=== PATIENT | female | born 1985 | race Hispanic/Latino ===

== ENCOUNTER 2018-08-09 14:47 | Inpatient (IN) | payer OTHER ==
[~2018-08-09] VITALS: Ht 162.6 cm; Wt 105.0 kg
--- NOTE | ~2018-08-09 | OR ---
[facility] [address], [place] [address] Draft DATE OF OPERATION: 08/09/2018 SURGEON: Margot Chen MD INSTALLATION DRAFTER: Timo Gunn DO PREOPERATIVE DIAGNOSES: A 36 plus week , severe preeclampsia, previous section x3, undesired fertility. POSTOPERATIVE DIAGNOSES: A 36 plus week , severe preeclampsia, previous section x3, undesired fertility with severe pelvic and abdominal adhesions. PROCEDURES PERFORMED: section with low segment transverse uterine incision, right salpingectomy, left partial salpingectomy, lysis of adhesions. ANESTHESIA: Spinal. ESTIMATED BLOOD LOSS: 1500 mL. DRAINS: Sanchez catheter. INDICATIONS AND FINDINGS: The patient is a 32-year-old female, 5, para 3, SAB 1, who was admitted at 36 weeks and 2 days with severe preeclampsia, headache, this been ongoing for the last five days. The patient has a history of chronic hypertension and has been on baby aspirin during the . She has a history of her prior affected with preeclampsia. 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 She has had proteinuria, which is worsened through the as well. She was counseled and taken to surgery, where she was delivered of a little girl from the ROT position via lower segment transverse uterine incision with Apgars of 8, 9, and 9, and weight of 6 pounds 1 ounce. There were extensive adhesions in the subfascial areas requiring a Maylard incision. There were also adhesions of the pyramidalis to the anterior uterine wall. There were also adhesions of the omentum to the anterior peritoneum. The tubes and ovaries PATIENT NAME: JEM MASON OPERATIVE REPORT DATE OF : 81 REPORT #: [id number] PHYSICIAN: MARGOT CHEN MD PCP: MARGOT CHEN MD REPORT IS CONFIDENTIAL AND NOT TO BE RELEASED WITHOUT AUTHORIZATION [facility] [address], [place] [address] Draft otherwise appeared normal as did the placenta. DESCRIPTION OF PROCEDURE: The patient was prepped and draped in the supine position. The prior scar was excised sharply. An incision was then carried down through the fascia with a cutting cautery. However, there were multiple large vessels in the subcu space requiring additional cautery to control bleeding. When the fascia was identified, the incision was extended initially with the knife and then with Gregory scissors. The inferior fascial flap was created with little difficulty. The upper flap was created with significant difficulty. At this point, there was still not enough room to operate. Subsequent to this, the muscles were on each side creating a Maylard type incision. The peritoneum had been previously opened. There was a dense adhesion of the pyramidalis muscle to the anterior uterine wall. This was divided with Gregory scissors and free tied on each side. Following this, the uterine incision was made at the upper aspect of the peritoneal reflection. The baby was delivered with the above findings and handed off to the pediatric staff in attendance. The uterus was explored and remaining placental tissue was removed from the uterus. The edges of the uterine incision were identified. Following this, an attempt was made to deliver the uterus as an Gordy retractor could not be placed previously because of the adhesions. The omental adhesions were identified and these were clamped and divided and free tied with 2-0 chromic as well. There was a very raw area on the anterior uterine wall from where the dissection was done from the previous adhesion. Several fenric-vp-twzyq 2-0 chromic were needed to control bleeding in this area as well. Following this, the uterus was closed with a running locking stitch of 0 Monocryl. Pressure was placed on this area and the patient's right tube was identified and hemostats were used to divide the mesosalpinx and this was serially clamped and divided and the specimen excised. Free ties of 0 Vicryl were used on the mesosalpinx. Good hemostasis was noted on the right side. The left tube was then identified and a partial salpingectomy was done as there was a very large vessel as the tube approached the uterus. The mesosalpinx was divided with hemostats and Metzenbaum scissors and the specimen excised. Free ties of 0 Vicryl were used on the mesosalpinx. Good hemostasis was noted. At this point, attention was redirected to the uterus. Multiple additional ttcsye-xb-fexlvx of 0 Monocryl were required to control bleeding at the incision site. Additional jtgmjm-bk-zdsknz were required on the uterine wall anteriorly where the previous adhesions had been taken down as well. The abdomen was copiously irrigated and inspected, and after long periods of observation and pressure it was felt that this layer was finally hemostatic enough to move onto the next layer. Jannette was sprinkled over the uterine incision as well as over the anterior wall over the raw area to aid in hemostasis. The peritoneum was left open. The muscles could not be brought together as they were very widely at this point. Crixxs-wh-orrizd were required on the upper left aspect of the muscles for control of bleeding from the membership counselor. Bleeding points were controlled at the inferior aspect with cgrqot-zm-fblvd sutures of 2-0 Vicryl as well. This layer was then PATIENT NAME: JEM MASON OPERATIVE REPORT DATE OF : 81 REPORT #: [id number] PHYSICIAN: MARGOT CHEN MD PCP: MARGOT CHEN MD REPORT IS CONFIDENTIAL AND NOT TO BE RELEASED WITHOUT AUTHORIZATION [address] [place], [place] [address] Draft irrigated and felt to be hemostatic. The fascia was then closed from each angle to the midline with a running suture of 0 Vicryl. There was significant tension on the midportion of the incision. The subcu layer was very tethered especially inferiorly and this required some release in the subcu area, which of course led to further bleeding given the extreme vascularity of the subcu layer. These bleeding points were controlled again with cautery. This layer was irrigated and a layer of Jannette was placed over this in this area to aid in hemostasis as well. The subcu space was closed with interrupted sutures of 3-0 Vicryl. The skin was closed with bailey. All sponge and needle counts were correct. She tolerated the procedure very well and was stable throughout. She was then taken to the recovery room in good condition. MD RYANNE Allen/MODL /[id number] cc: Timo Gunn DO Copies: TIMO GUNN DO ~ PATIENT NAME: JEM MASON OPERATIVE REPORT DATE OF : 81 REPORT #: [id number] PHYSICIAN: MARGOT CHEN MD PCP: MARGOT CHEN MD REPORT IS CONFIDENTIAL AND NOT TO BE RELEASED WITHOUT AUTHORIZATION
--- NOTE | 2018-08-09 21:07 | NUR ---
08/09/182106 Mya Willis PT ARRIVES TO C ROOM, SPOUSE IS AT THE BEDSIDE. SHE IS AWAKE, HER SPINAL HAS FULLY RESOLVED BEFORE RETURNING TO HER ROOM. SHE IS DENYING ANY PAIN AT THIS TIME.
--- NOTE | 2018-08-10 08:44 | PR ---
[facility] [address] [facility] [place], [place] [address] Signed PP Progress Notes Datetime Report Generated by CPN: 08/10/2018 08:44 SUBJECTIVE: [id number] Pain: Within normal limits Nausea/Vomiting: Denies Vital Signs: [id number] Vital Signs: Reviewed; Within Normal Limits EXAM: [id number] Cardiovascular: Normal Respiratory: Normal Abdomen/Uterus: Abnormal Lochia: Normal Vulva/Perineum: Not Done Breasts: Not Done CVA Tenderness: Not Done Extremities: Normal Incision: Abnormal Progress: Abnormal Exam Comments: Abdomen with active BS. Fundus firm, NT @ U+1. Incision with some bailey out in the midportion with some oozing from the incision. H/H 10.7/31.1, WBC 8.9, plat 166k IMPRESSION/PLAN/PROCEDURES: [id number] Impression: Normal progression; Induced Hypertension Other Impression: BPs improved Other Plans: ambulate later, redress incision Progress Notes: Overall doing well. Later today will begin ambulation. Will need to redress incision given the oozing in the center and loss of bailey in that area. Signing Physician: Margot Chen MD Copies: ~ *Electronically Signed* 08/10/18 0844 MARGOT CHNE MD PATIENT NAME: JEM MASON PROGRESS NOTE DATE OF : 81 PHYSICIAN: MARGOT CHEN MD RPT #: [id number] REPORT IS CONFIDENTIAL AND NOT TO BE RELEASED WITHOUT AUTHORIZATION
--- NOTE | 2018-08-11 10:11 | PR ---
[facility] [address] [place], [place] [address] Signed PP Progress Notes Datetime Report Generated by CPN: 08/11/2018 10:11 SUBJECTIVE: [id number] Pain: Within normal limits Nausea/Vomiting: Denies Flatus: Yes Vital Signs: [id number] Vital Signs: Reviewed; Within Normal Limits EXAM: [id number] Cardiovascular: Normal Respiratory: Normal Abdomen/Uterus: Abnormal Lochia: Normal Vulva/Perineum: Not Done Breasts: Not Done CVA Tenderness: Not Done Extremities: Normal Incision: Abnormal Progress: Abnormal Exam Comments: Abdomen with active BS. Fundus firm, NT @ U. Incision with open area as bailey came out with small amount of bloody drainage. There is no erythema, induration, or purulent D/. IMPRESSION/PLAN/PROCEDURES: [id number] Impression: Normal progression Other Impression: BPs improved Plan: Discharge Other Plans: ambulate later, redress incision Procedures: None Progress Notes: Doing well though there is an open area in the midportion where bailey came out. They do desire D/C to see baby at [facility]. Signing Physician: Margot Chen MD Copies: ~ *Electronically Signed* 08/11/18 1011 MARGOT CHEN MD PATIENT NAME: JEM MASON PROGRESS NOTE DATE OF : 81 PHYSICIAN: MARGOT CHEN MD RPT #: [id number] REPORT IS CONFIDENTIAL AND NOT TO BE RELEASED WITHOUT AUTHORIZATION
== END 2018-08-11 12:05 | disposition home or self-care (01) | DRG 783 ==
LOC: FBCO 14:47 → FBC 17:11
PROVIDERS: ADMIT Obstetrics & Gynecology
PROC: 0UB60ZZ Excision of Left Fallopian Tube, Open Approach (ICD-10-PCS; 2018-08-09)
PROC: 0UT50ZZ Resection of Right Fallopian Tube, Open Approach (ICD-10-PCS; 2018-08-09)
PROC: 10D00Z1 Extraction of Products of Conception, Low, Open Approach (ICD-10-PCS; principal; 2018-08-09 16:30)
DX: O34.211 Maternal care for low transverse scar from previous cesarean delivery (principal); O60.13X0 Preterm labor second trimester with preterm delivery third trimester, not applicable or unspecified; O10.02 Pre-existing essential hypertension complicating childbirth; N85.8 Other specified noninflammatory disorders of uterus; Z3A.36 36 weeks gestation of pregnancy; Z37.0 Single live birth; Z30.2 Encounter for sterilization; O32.2XX0 Maternal care for transverse and oblique lie, not applicable or unspecified; O11.4 Pre-existing hypertension with pre-eclampsia, complicating childbirth; O99.214 Obesity complicating childbirth; E66.9 Obesity, unspecified; O26.03 Excessive weight gain in pregnancy, third trimester; Z87.440 Personal history of urinary (tract) infections; Z79.82 Long term (current) use of aspirin; Z14.8 Genetic carrier of other disease
CPT/HCPCS: 01961; 36415; 59025; 82565; 82570; 84156; 84450; 84520; 84550; 85025; 85027; 85384; 85610; 85730; J0690; J1170; J1644; J2175; J2274; J2370; J2590; J7120